=== PATIENT | female | born 1960 | race African-American/Black ===

== ENCOUNTER → 2017-03-18 | Outpatient (CLI) | payer BC ==
[~2017-03-18] MED LIST: 00186-0370-20 IH; ATIVAN 0.50.5 MG/TAB PO; CALCIUM 500 + D1 TA1 PO; CALCIUM500 MG PO; CATAFLAM50 MG PO; CLARITIN 1010 MG/TAB PO; FLONASEALLERGY NS; IRON65 M1 PO; KLOR-CON20 MEQ PO; MASON NATURAL2000 IU PO; MEDROL 4MG DOSPA4 MG PO; NEURONTIN100 MG/CAP PO; NO HOME MEDICATIONS; NORCO 325 MG-51 TAB PO; ONE DAILY1 TA1 PO; PREDNISONE20 MG PO; PRILOSEC 20MG20 MG PO; PROVENTIL0.09 MG/A1 IH; REQUIP0.25 MG PO; RT ADVAIR 228 DISKUS IH; RT ADVAIR 528 DISKUS IH; VALIUM 2MG T2 MG/TAB PO; VENTOLIN0.09 MG IH; VOLTAREN 50MG T50 MG PO; ZITHROMAX Z PA250 MG PO; ZYRTEC 10MG10 MG PO
== END ==
LOC: MC.RAD 07:40
DX: Z12.31 Encounter for screening mammogram for malignant neoplasm of breast (principal)

== ENCOUNTER 2017-09-29 09:46 | Emergency (ER) | payer BC ==
[~2017-09-29] VITALS: Ht 160 cm; Wt 103.7 kg
[2017-09-29] MEDS ORDERED: SINGULAIR 110 MG/TAB PO (10:05)
[2017-09-29] MEDS ORDERED: NEURONTIN300 MG/CAP PO (10:05)
[2017-09-29] MEDS ORDERED: MOBIC15 MG PO (10:05)
[2017-09-29] MEDS ORDERED: SPIRIVA RE2.5 MCG/Ac IH (10:05)
[2017-09-29 10:12] VITALS: TEMP 98
[2017-09-29 10:45] LABS: BASO % 0.3 % (0.0-2.0); EOS # 0.1 (0.0-0.7); EOS % 1.8 % (0-4.0); GRAN # 3.8 (1.4-6.5); HEMATOCRIT 37.8 % (37.0-47.0); HEMOGLOBIN 12.3 g/dl (12.5-16.0); LYMPH # 2.1 (1.2-3.4); LYMPH % 31.7 % (20.0-51.0); MEAN CELL VOLUME 93 fl (80.0-100.0); MEAN CORPUSCULAR HEMOGLOBIN 30 pg (27.0-31.0); MEAN CORPUSCULAR HGB CONC 33 g/dl (33.0-37.0); MEAN PLATELET VOLUME 10.3 fl (7.4-10.4); MONO # 0.5 (0.1-0.6); PLATELET COUNT 232 K/mm3 (130-400); RED BLOOD COUNT 4.07 M/mm3 (4.10-5.30)
[2017-09-29 10:57] VITALS: PULSE 82
[2017-09-29 11:00] LABS: ALANINE AMINOTRANSFERASE 35 U/L (9-52); ALBUMIN 3.9 gm/dL (3.5-5.0); ALKALINE PHOSPHATASE 71 U/L (50-136); ANION GAP 11 mmol/L (7-16); AST,SGOT 25 U/L (15-37); BILIRUBIN,TOTAL 0.4 mg/dL (0.0-1.0); BLOOD UREA NITROGEN 10 mg/dL (7-17); C-REACTIVE PROTEIN 0.6 mg/dL (0.0-0.9); CALCIUM 8.7 mg/dL (8.4-10.2); CARBON DIOXIDE 27 mmol/L (22-30); CHLORIDE 105 mmol/L (98-107); CREATININE, serum 0.74 mg/dL (0.52-1.25); GLUCOSE 89 mg/dL (74-106); POTASSIUM 3.4 mmol/L (3.4-5.0); SODIUM 144 mmol/L (137-145); TOTAL PROTEIN 7.6 gm/dL (6.4-8.2)
[2017-09-29 11:11] LABS: TROPONIN-I < 0.012 ng/mL (0.000-0.034)
[2017-09-29 11:46] LABS: COLLECTION METHOD CLEAN CATCH
[2017-09-29 11:58] LABS: MUCOUS Present /lpf; PH 7 (5-8); SQUAMOUS EPITHELIAL None Seen /hpf; URINE APPEARANCE Clear; URINE BACTERIA None Seen /hpf; URINE BILIRUBIN Negative (NEGATIVE); URINE BLOOD Negative (NEGATIVE); URINE COLOR Yellow; URINE GLUCOSE Negative (NEGATIVE); URINE KETONE Negative (NEGATIVE); URINE LEUKOCYTE ESTERASE Negative (NEGATIVE); URINE NITRATE Negative (NEGATIVE); URINE PROTEIN(semi-quant) Negative (NEGATIVE); URINE RBC None Seen /hpf; URINE UROBILINOGEN Negative (NEGATIVE)
[2017-09-29 12:20] VITALS: BP 136/87
== END 2017-09-29 12:25 | disposition home or self-care (01) ==
LOC: COL.ER 09:46
PROVIDERS: Emergency Medicine
DX: R53.81 Other malaise (principal); R53.83 Other fatigue; I10 Essential (primary) hypertension; J44.9 Chronic obstructive pulmonary disease, unspecified; F17.210 Nicotine dependence, cigarettes, uncomplicated; Z79.51 Long term (current) use of inhaled steroids
CPT/HCPCS: J7030

== ENCOUNTER 2018-01-12 14:38 | Emergency (ER) | payer BC ==
[~2018-01-12] VITALS: Ht 157.5 cm; Wt 90.9 kg
[~2018-01-12 14:38] MED LIST changes: +MOBIC15 MG PO; +NEURONTIN300 MG/CAP PO; +SINGULAIR 110 MG/TAB PO; +SPIRIVA RE2.5 MCG/Ac IH
[2018-01-12 14:43] VITALS: TEMP 98.2
[2018-01-12 15:22] LABS: BASO % 0.5 % (0.0-2.0); EOS # 0.1 (0.0-0.7); EOS % 1.5 % (0-4.0); GRAN # 4.7 (1.4-6.5); GRAN % 62.7 % (42.2-75.2); HEMATOCRIT 38.7 % (37.0-47.0); HEMOGLOBIN 12.6 g/dl (12.5-16.0); MEAN CELL VOLUME 93 fl (80.0-100.0); MEAN CORPUSCULAR HEMOGLOBIN 30 pg (27.0-31.0); MEAN CORPUSCULAR HGB CONC 33 g/dl (33.0-37.0); MEAN PLATELET VOLUME 10.2 fl (7.4-10.4); MONO # 0.7 (0.1-0.6); MONO % 9.2 % (1.7-9.3); PLATELET COUNT 287 K/mm3 (130-400); RED BLOOD COUNT 4.15 M/mm3 (4.10-5.30); REDCELL DISTRIBUTION WIDTH-CV 13.1 % (11.5-14.5)
[2018-01-12 15:25] LABS: ALANINE AMINOTRANSFERASE 30 U/L (9-52); ALBUMIN 4.2 gm/dL (3.5-5.0); ALKALINE PHOSPHATASE 69 U/L (50-136); ANION GAP 12 mmol/L (7-16); AST,SGOT 28 U/L (15-37); BILIRUBIN,TOTAL 0.3 mg/dL (0.0-1.0); BLOOD UREA NITROGEN 11 mg/dL (7-17); C-REACTIVE PROTEIN 0.9 mg/dL (0.0-0.9); CALCIUM 8.7 mg/dL (8.4-10.2); CARBON DIOXIDE 27 mmol/L (22-30); CHLORIDE 100 mmol/L (98-107); CREATININE, serum 0.66 mg/dL (0.52-1.25); GLUCOSE 86 mg/dL (74-106); LIPASE 419 U/L (23-300); POTASSIUM 3.6 mmol/L (3.4-5.0); SODIUM 139 mmol/L (137-145); TOTAL PROTEIN 7.5 gm/dL (6.4-8.2)
[2018-01-12 15:39] LABS: TROPONIN-I < 0.012 ng/mL (0.000-0.034)
[2018-01-12] MEDS ORDERED: PREDNISONE20 MG PO (16:52)
[2018-01-12 17:36] VITALS: BP 134/91; PULSE 71
== END 2018-01-12 17:36 | disposition home or self-care (01) ==
LOC: COL.ER 14:38
PROVIDERS: Emergency Medicine
DX: J45.901 Unspecified asthma with (acute) exacerbation (principal); K21.9 Gastro-esophageal reflux disease without esophagitis; Z79.51 Long term (current) use of inhaled steroids
CPT/HCPCS: J7512

== ENCOUNTER 2018-01-14 15:45 | Emergency (ER) | payer BC ==
[~2018-01-14] VITALS: Ht 157.5 cm; Wt 100.0 kg
[2018-01-14 15:52] VITALS: BP 146/93; TEMP 98.2
[2018-01-14 16:48] LABS: BASO % 0.1 % (0.0-2.0); GRAN # 14.6 (1.4-6.5); GRAN % 90.1 % (42.2-75.2); HEMATOCRIT 38.5 % (37.0-47.0); HEMOGLOBIN 12.6 g/dl (12.5-16.0); LYMPH # 1.1 (1.2-3.4); LYMPH % 6.7 % (20.0-51.0); MEAN CELL VOLUME 93 fl (80.0-100.0); MEAN CORPUSCULAR HEMOGLOBIN 31 pg (27.0-31.0); MEAN CORPUSCULAR HGB CONC 33 g/dl (33.0-37.0); MEAN PLATELET VOLUME 10.1 fl (7.4-10.4); MONO # 0.4 (0.1-0.6); MONO % 2.2 % (1.7-9.3); PLATELET COUNT 292 K/mm3 (130-400); RED BLOOD COUNT 4.12 M/mm3 (4.10-5.30); REDCELL DISTRIBUTION WIDTH-CV 13.2 % (11.5-14.5)
[2018-01-14 17:06] LABS: ALANINE AMINOTRANSFERASE 31 U/L (9-52); ALBUMIN 4.3 gm/dL (3.5-5.0); ALKALINE PHOSPHATASE 79 U/L (50-136); ANION GAP 10 mmol/L (7-16); AST,SGOT 24 U/L (15-37); BILIRUBIN,TOTAL 0.2 mg/dL (0.0-1.0); BLOOD UREA NITROGEN 13 mg/dL (7-17); CALCIUM 9.1 mg/dL (8.4-10.2); CARBON DIOXIDE 27 mmol/L (22-30); CHLORIDE 103 mmol/L (98-107); CREATININE, serum 0.58 mg/dL (0.52-1.25); GLUCOSE 132 mg/dL (74-106); SODIUM 139 mmol/L (137-145); TOTAL PROTEIN 7.7 gm/dL (6.4-8.2)
[2018-01-14 17:20] LABS: TROPONIN-I < 0.012 ng/mL (0.000-0.034)
[2018-01-14] MEDS ORDERED: ZITHROMAX Z PA250 MG PO (17:24)
[2018-01-14 17:53] VITALS: PULSE 100
== END 2018-01-14 18:02 | disposition home or self-care (01) ==
LOC: COL.ER 15:45
PROVIDERS: Emergency Medicine
DX: J45.901 Unspecified asthma with (acute) exacerbation (principal); J06.9 Acute upper respiratory infection, unspecified; R07.89 Other chest pain; E66.9 Obesity, unspecified; Z87.891 Personal history of nicotine dependence; Z79.51 Long term (current) use of inhaled steroids

== ENCOUNTER 2018-05-14 09:24 | Day surgery (SDC) | payer BC ==
[~2018-05-14] VITALS: Ht 158.8 cm; Wt 106.4 kg
[2018-05-14] VITALS (8 sets, daily range): BP systolic 108–137; BP diastolic 74–106; PULSE 20–95; TEMP 98.3–98.4
[2018-05-14] MEDS ORDERED: CELEXA 20MG20 MG/TAB PO (09:59)
[2018-05-14] MEDS ORDERED: VITAMIN D31000 I1 PO (09:59)
[2018-05-14] MEDS ORDERED: MAG-OX 400400 MG/TAB PO (10:00)
[2018-05-14] MEDS ORDERED: BENADRYL25 M2 PO (10:00)
== END 2018-05-14 13:20 | disposition home or self-care (01) ==
LOC: SDCO 09:24
DX: Z12.11 Encounter for screening for malignant neoplasm of colon (principal); D12.0 Benign neoplasm of cecum; D12.2 Benign neoplasm of ascending colon; K57.30 Diverticulosis of large intestine without perforation or abscess without bleeding; J45.909 Unspecified asthma, uncomplicated; Z86.010 Personal history of colon polyps
CPT/HCPCS: J2250; J3010; J7030

== ENCOUNTER 2019-03-24 17:05 | Emergency (ER) | payer SELFPAY ==
[~2019-03-24] VITALS: Ht 157.5 cm; Wt 101.8 kg
[~2019-03-24 17:05] MED LIST changes: +BENADRYL25 M2 PO; +CELEXA 20MG20 MG/TAB PO; +FLONASE NASAL S16 GM NS; +MAG-OX 400400 MG/TAB PO; +MUCINEX DM 30 M1 TE1; +TESSALON PERLE200 MG PO; +VITAMIN D31000 I1 PO; +ZITHROMAX500 M2 PO
[2019-03-24 17:10] VITALS: BP 140/89; TEMP 97.9
[2019-03-24 18:42] LABS: BASO % 0.4 % (0.0-2.0); EOS # 0.1 (0.0-0.7); EOS % 1.5 % (0-4.0); GRAN # 4.9 (1.4-6.5); GRAN % 67.4 % (42.2-75.2); HEMOGLOBIN 11.6 g/dl (12.5-16.0); LYMPH # 1.7 (1.2-3.4); LYMPH % 23.2 % (20.0-51.0); MEAN CELL VOLUME 96 fl (80.0-100.0); MEAN CORPUSCULAR HEMOGLOBIN 30 pg (27.0-31.0); MEAN CORPUSCULAR HGB CONC 32 g/dl (33.0-37.0); MEAN PLATELET VOLUME 10.3 fl (7.4-10.4); MONO # 0.5 (0.1-0.6); MONO % 7.2 % (1.7-9.3); PLATELET COUNT 249 K/mm3 (130-400); RED BLOOD COUNT 3.81 M/mm3 (4.10-5.30); REDCELL DISTRIBUTION WIDTH-CV 13.2 % (11.5-14.5)
[2019-03-24 18:57] LABS: HEMATOCRIT 36.6 % (37.0-47.0)
[2019-03-24 19:03] LABS: ALANINE AMINOTRANSFERASE 26 U/L (9-52); ALBUMIN 4.2 gm/dL (3.5-5.0); ALKALINE PHOSPHATASE 70 U/L (50-136); ANION GAP 10 mmol/L (7-16); AST,SGOT 32 U/L (15-37); BILIRUBIN,TOTAL 0.2 mg/dL (0.0-1.0); BLOOD UREA NITROGEN 9 mg/dL (7-17); CALCIUM 8.8 mg/dL (8.4-10.2); CARBON DIOXIDE 28 mmol/L (22-30); CHLORIDE 105 mmol/L (98-107); CREATININE, serum 0.75 (0.52-1.25); GLUCOSE 114 mg/dL (74-106); POTASSIUM 3.9 mmol/L (3.4-5.0); SODIUM 142 mmol/L (137-145); TOTAL PROTEIN 7.4 gm/dL (6.4-8.2)
[2019-03-24] MEDS ORDERED: PREDNISONE20 MG PO (19:04)
[2019-03-24 19:21] LABS: TROPONIN-I < 0.012 ng/mL (0.000-0.035)
[2019-03-24 20:17] VITALS: PULSE 92
== END 2019-03-24 19:45 | disposition home or self-care (01) ==
LOC: COL.ER 17:05
PROVIDERS: Emergency Medicine
DX: J45.901 Unspecified asthma with (acute) exacerbation (principal); Z79.51 Long term (current) use of inhaled steroids
CPT/HCPCS: J7512

== ENCOUNTER 2019-07-21 16:45 | Emergency (ER) | payer BC ==
[~2019-07-21] VITALS: Ht 160 cm; Wt 101.8 kg
[2019-07-21 16:53] VITALS: TEMP 97
[2019-07-21] MEDS ORDERED: ULTRAM 50MG TAB50 MG PO (18:51)
[2019-07-21 19:35] VITALS: BP 145/92; PULSE 86
== END 2019-07-21 17:35 | disposition home or self-care (01) ==
LOC: COL.ER 16:45
DX: S80.02XA Contusion of left knee, initial encounter (principal); M25.552 Pain in left hip; F32.9 Major depressive disorder, single episode, unspecified; J45.909 Unspecified asthma, uncomplicated; Z79.51 Long term (current) use of inhaled steroids; W01.0XXA Fall on same level from slipping, tripping and stumbling without subsequent striking against object, initial encounter; Y92.481 Parking lot as the place of occurrence of the external cause
CPT/HCPCS: J1885

== ENCOUNTER 2020-02-17 12:53 | Emergency (ER) | payer BC ==
[~2020-02-17] VITALS: Ht 160 cm; Wt 109.1 kg
[~2020-02-17 12:53] MED LIST changes: +ULTRAM 50MG TAB50 MG PO
[2020-02-17 13:08] VITALS: BP 120/83; TEMP 98.3
[2020-02-17 17:33] VITALS: PULSE 66
== END 2020-02-17 17:36 | disposition home or self-care (01) ==
LOC: COL.ER 12:53
DX: S83.92XA Sprain of unspecified site of left knee, initial encounter (principal); J45.909 Unspecified asthma, uncomplicated; F32.9 Major depressive disorder, single episode, unspecified; W01.0XXA Fall on same level from slipping, tripping and stumbling without subsequent striking against object, initial encounter; Y92.009 Unspecified place in unspecified non-institutional (private) residence as the place of occurrence of the external cause

== ENCOUNTER 2021-01-07 15:27 | Emergency (ER) | payer BC ==
[~2021-01-07] VITALS: Ht 154.9 cm; Wt 122.3 kg
[2021-01-07 15:36] VITALS: TEMP 98.5
[2021-01-07] MEDS ORDERED: BACTRIM DS 8001 TAB PO (15:52)
[2021-01-07 16:08] VITALS: BP 127/93; PULSE 82
== END 2021-01-07 16:14 | disposition home or self-care (01) ==
LOC: COL.ER 15:27
DX: L03.115 Cellulitis of right lower limb (principal); J44.9 Chronic obstructive pulmonary disease, unspecified; Z79.899 Other long term (current) drug therapy

== ENCOUNTER 2021-01-18 20:15 | Emergency (ER) | payer BC ==
[~2021-01-18] VITALS: Ht 157.5 cm; Wt 124.1 kg
[~2021-01-18 20:15] MED LIST changes: +BACTRIM DS 8001 TAB PO
[2021-01-18] MEDS ORDERED: FLEXERIL 1010 MG/TAB PO (22:17)
[2021-01-18 22:44] VITALS: BP 126/64; PULSE 76; TEMP 98.2
== END 2021-01-18 22:48 | disposition home or self-care (01) ==
LOC: COL.ER 20:15
DX: S39.012A Strain of muscle, fascia and tendon of lower back, initial encounter (principal); X58.XXXA Exposure to other specified factors, initial encounter
CPT/HCPCS: J1885

== ENCOUNTER 2021-03-26 15:00 | Outpatient (RCR) | payer BC ==
[~2021-03-26 15:00] MED LIST changes: +FLEXERIL 1010 MG/TAB PO
== END 2021-05-05 | disposition home or self-care (01) ==
LOC: WSPT
DX: R60.0 Localized edema (principal)

== ENCOUNTER 2021-07-19 14:52 | Emergency (ER) | payer BC ==
[~2021-07-19] VITALS: Ht 157.5 cm; Wt 127.7 kg
[2021-07-19] MEDS ORDERED: NORCO 325 MG-51 TAB PO (16:39)
[2021-07-19 17:26] VITALS: BP 132/78; PULSE 81; TEMP 98.4
== END 2021-07-19 17:15 | disposition home or self-care (01) ==
LOC: COL.ER 14:52
DX: S79.911A Unspecified injury of right hip, initial encounter (principal); M25.561 Pain in right knee; L03.115 Cellulitis of right lower limb; M17.11 Unilateral primary osteoarthritis, right knee; I10 Essential (primary) hypertension; J45.909 Unspecified asthma, uncomplicated; Z79.899 Other long term (current) drug therapy; W06.XXXA Fall from bed, initial encounter

== ENCOUNTER 2022-01-03 14:32 | Emergency (ER) | payer SELFPAY ==
[~2022-01-03] VITALS: Ht 157.5 cm; Wt 118.2 kg
[2022-01-03 14:35] VITALS: TEMP 97.4
[2022-01-03 14:56] LABS: BASO % 0.6 % (0.0-2.0); EOS # 0.2 K/mm3 (0.0-0.7); EOS % 2.4 % (0.0-4.0); GRAN # 4.1 K/mm3 (1.4-6.5); GRAN % 63.6 % (42.2-75.2); HEMATOCRIT 38.8 % (37.0-47.0); HEMOGLOBIN 12.7 g/dl (12.5-16.0); LYMPH # 1.6 K/mm3 (1.2-3.4); LYMPH % 24.6 % (20.0-51.0); MEAN CELL VOLUME 92 fl (80.0-100.0); MEAN CORPUSCULAR HEMOGLOBIN 30 pg (27-31); MEAN CORPUSCULAR HGB CONC 33 g/dl (33.0-37.0); MEAN PLATELET VOLUME 10.1 fl (7.4-10.4); MONO # 0.6 K/mm3 (0.1-0.6); MONO % 8.6 % (1.7-9.3); PLATELET COUNT 265 K/mm3 (130-400); REDCELL DISTRIBUTION WIDTH-CV 13.4 % (11.5-14.5)
[2022-01-03 15:12] LABS: ANION GAP 14 mmol/L (7-16); BLOOD UREA NITROGEN 9 mg/dL (10-20); CALCIUM 9.2 mg/dL (8.4-10.2); CARBON DIOXIDE 25 mmol/L (23-31); CHLORIDE 103 mmol/L (98-107); CREATININE, serum 0.79 mg/dL (0.57-1.11); GLUCOSE 92 mg/dL (70-99); POTASSIUM 3.9 mmol/L (3.5-4.5); SODIUM 142 mmol/L (136-145)
[2022-01-03 15:28] LABS: TROPONIN-I < 0.010 ng/mL (0.00-0.033)
[2022-01-03] MEDS ORDERED: PREDNISONE20 MG PO (15:45)
[2022-01-03 16:15] VITALS: BP 139/83; PULSE 90
== END 2022-01-03 16:20 | disposition home or self-care (01) ==
LOC: COL.ER 14:32
PROVIDERS: Emergency Medicine
DX: J45.901 Unspecified asthma with (acute) exacerbation (principal); Z20.822 Contact with and (suspected) exposure to COVID-19
CPT/HCPCS: J2930; J7120

== ENCOUNTER 2022-02-22 17:02 | Emergency (ER) | payer SELFPAY ==
[~2022-02-22] VITALS: Ht 157.5 cm; Wt 118.2 kg
[2022-02-22 17:05] VITALS: TEMP 98.1
[2022-02-22 17:51] LABS: BASO % 0.4 % (0.0-2.0); EOS # 0.1 K/mm3 (0.0-0.7); EOS % 1.4 % (0.0-4.0); GRAN # 5.5 K/mm3 (1.4-6.5); GRAN % 71.3 % (42.2-75.2); HEMATOCRIT 37.4 % (37.0-47.0); HEMOGLOBIN 11.9 g/dl (12.5-16.0); LYMPH # 1.6 K/mm3 (1.2-3.4); LYMPH % 21.5 % (20.0-51.0); MEAN CELL VOLUME 95 fl (80.0-100.0); MEAN CORPUSCULAR HEMOGLOBIN 30 pg (27-31); MEAN CORPUSCULAR HGB CONC 32 g/dl (33.0-37.0); MEAN PLATELET VOLUME 9.7 fl (7.4-10.4); MONO # 0.4 K/mm3 (0.1-0.6); PLATELET COUNT 235 K/mm3 (130-400); RED BLOOD COUNT 3.95 M/mm3 (4.10-5.30); REDCELL DISTRIBUTION WIDTH-CV 13.5 % (11.5-14.5)
[2022-02-22 18:15] LABS: ALBUMIN 3.8 gm/dL (3.4-4.8); BILIRUBIN,TOTAL 0.2 mg/dL (0.2-1.2); CALCIUM 9.4 mg/dL (8.4-10.2); CREATININE, serum 0.82 mg/dL (0.57-1.11); POTASSIUM 3.7 mmol/L (3.5-4.5); TOTAL PROTEIN 7.3 gm/dL (6.2-8.1)
[2022-02-22 18:21] LABS: TROPONIN-I 0.014 ng/mL (0.00-0.033)
[2022-02-22] MEDS ORDERED: IPRATROPIUM BROM3 M1 IH (19:52)
[2022-02-22] MEDS ORDERED: PREDNISONE50 MG PO (19:53)
[2022-02-22 20:41] VITALS: BP 146/89; PULSE 94
== END 2022-02-22 20:56 | disposition home or self-care (01) ==
LOC: COL.ER 17:02
PROVIDERS: Physician Assistant
DX: J45.901 Unspecified asthma with (acute) exacerbation (principal); E66.9 Obesity, unspecified; Z68.42 Body mass index [BMI] 45.0-49.9, adult; Z20.822 Contact with and (suspected) exposure to COVID-19
CPT/HCPCS: J2930

== ENCOUNTER 2022-02-24 17:02 | Emergency (ER) | payer SELFPAY ==
[~2022-02-24] VITALS: Ht 157.5 cm; Wt 118.2 kg
[~2022-02-24 17:02] MED LIST changes: +IPRATROPIUM BROM3 M1 IH; +PREDNISONE50 MG PO
[2022-02-24 17:51] VITALS: BP 159/94; TEMP 98.2
[2022-02-24 18:57] VITALS: PULSE 97
== END 2022-02-24 19:01 | disposition home or self-care (01) ==
LOC: COL.ER 17:02
DX: J45.901 Unspecified asthma with (acute) exacerbation (principal); E66.9 Obesity, unspecified; Z68.29 Body mass index [BMI] 29.0-29.9, adult; Z79.52 Long term (current) use of systemic steroids
CPT/HCPCS: J1100

== ENCOUNTER 2022-06-16 15:22 | Emergency (ER) | payer MEDICAID ==
[~2022-06-16] VITALS: Ht 157.5 cm; Wt 130.0 kg
[2022-06-16 15:26] VITALS: TEMP 98.4
[2022-06-16 16:23] LABS: BASO % 0.3 % (0.0-2.0); EOS # 0.2 K/mm3 (0.0-0.7); EOS % 2.4 % (0.0-4.0); GRAN # 4.3 K/mm3 (1.4-6.5); GRAN % 67.3 % (42.2-75.2); HEMATOCRIT 37.1 % (37.0-47.0); HEMOGLOBIN 11.7 g/dl (12.5-16.0); LYMPH # 1.4 K/mm3 (1.2-3.4); LYMPH % 22.4 % (20.0-51.0); MEAN CELL VOLUME 95 fl (80.0-100.0); MEAN CORPUSCULAR HEMOGLOBIN 30 pg (27-31); MEAN CORPUSCULAR HGB CONC 32 g/dl (33.0-37.0); MEAN PLATELET VOLUME 9.9 fl (7.4-10.4); MONO # 0.5 K/mm3 (0.1-0.6); MONO % 7.4 % (1.7-9.3); PLATELET COUNT 272 K/mm3 (130-400); RED BLOOD COUNT 3.92 M/mm3 (4.10-5.30); REDCELL DISTRIBUTION WIDTH-CV 13.2 % (11.5-14.5)
[2022-06-16 16:44] LABS: ALANINE AMINOTRANSFERASE 25 U/L (0-55); ALBUMIN 3.5 gm/dL (3.4-4.8); ALKALINE PHOSPHATASE 60 U/L (40-150); ANION GAP 9 mmol/L (7-16); AST,SGOT 18 U/L (5-34); BILIRUBIN,TOTAL 0.4 mg/dL (0.2-1.2); BLOOD UREA NITROGEN 11 mg/dL (10-20); CALCIUM 8.9 mg/dL (8.4-10.2); CARBON DIOXIDE 27 mmol/L (23-31); CHLORIDE 105 mmol/L (98-107); GLUCOSE 83 mg/dL (70-99); POTASSIUM 3.7 mmol/L (3.5-4.5); SODIUM 141 mmol/L (136-145); TOTAL PROTEIN 7.2 gm/dL (6.2-8.1)
[2022-06-16 16:52] LABS: TROPONIN-I < 0.010 ng/mL (0.00-0.033)
[2022-06-16] MEDS ORDERED: PREDNISONE20 MG PO (18:06)
[2022-06-16 18:15] VITALS: BP 140/87; PULSE 94
[2022-07-07] MEDS ORDERED: PREDNISONE50 MG PO (13:24)
[2022-07-29] MEDS ORDERED: NORCO 325 MG-51 TAB PO (20:55)
[2022-08-23] MEDS ORDERED: MEDROL 4MG DOSPA4 MG PO (16:29)
[2022-08-23] MEDS ORDERED: FLEXERIL 1010 MG/TAB PO (16:29)
[2022-09-17] MEDS ORDERED: VOLTAREN GEL 1%1 TU TP (21:05)
[2022-09-17] MEDS ORDERED: BENADRYL25 M2 PO (21:06)
[2022-09-17] MEDS ORDERED: NEURONTIN300 MG/CAP PO (21:07)
[2022-09-17] MEDS ORDERED: IMODIUM 2MG CAPS2 MG PO (21:07)
[2022-09-17] MEDS ORDERED: SINGULAIR 110 MG/TAB PO (21:08)
[2022-09-17] MEDS ORDERED: MAG-OX 400400 MG/TAB PO (21:08)
[2022-09-17] MEDS ORDERED: K-DUR20 MEQ PO (21:10)
[2022-09-17] MEDS ORDERED: REQUIP0.25 MG PO (21:10)
[2022-09-17] MEDS ORDERED: 00186-0370-20 IH (21:11)
[2022-09-17] MEDS ORDERED: VITAMIN D31000 I1 PO (21:11)
[2022-09-19] MEDS ORDERED: MULTI VITAMINS1 TAB PO (14:34)
[2022-09-19] MEDS ORDERED: FLEXERIL 1010 MG/TAB PO (14:35)
[2022-09-20] MEDS ORDERED: LASIX 40MG TABL40 MG PO (10:09)
[2022-09-20] MEDS ORDERED: COUMADIN 5MG5 MG/TAB PO (10:10)
[2022-09-20] MEDS ORDERED: LOVENOX150 MG/ML SQ (10:11)
[2022-09-20] MEDS ORDERED: MONODOX100 PO (10:12)
[2022-09-20] MEDS ORDERED: NORCO 325 MG-51 TAB PO (10:12)
[2023-01-09] MEDS ORDERED: NORCO 325 MG-51 TAB PO ×2 (16:16→16:19)
[2023-01-09] MEDS ORDERED: MEDROL 4MG DOSPA4 MG PO (19:45)
[2023-03-23] MEDS ORDERED: DICLOFENAC SOD2.5 ML TOP (17:23)
[2023-03-23] MEDS ORDERED: FERROUSAL325 MG PO (17:24)
[2023-03-23] MEDS ORDERED: FLONASEALLERGY NS (17:24)
[2023-03-23] MEDS ORDERED: DITROPAN 5MG TAB5 MG PO (17:26)
[2023-03-23] MEDS ORDERED: REQUIP0.25 MG PO (17:26)
[2023-03-23] MEDS ORDERED: RT SPIRIVA18 MCG IH (17:27)
[2023-03-23] MEDS ORDERED: COUMADIN 5MG5 MG/TAB PO (17:30)
[2023-03-23] MEDS ORDERED: PREDNISONE20 MG PO (21:09)
[2023-03-23] MEDS ORDERED: DOXYCYCLINE 10100 MG PO (21:09)
== END 2022-06-16 18:21 | disposition home or self-care (01) ==
LOC: COL.ER 15:22
PROVIDERS: Emergency Medicine
DX: J45.901 Unspecified asthma with (acute) exacerbation (principal); M25.552 Pain in left hip; Z28.310 Unvaccinated for COVID-19
CPT/HCPCS: J7512

== ENCOUNTER 2023-06-19 13:04 | Day surgery (SDC) | payer MEDICAID ==
[~2023-06-19] VITALS: Ht 160 cm; Wt 138.3 kg
[~2023-06-19 13:04] MED LIST changes: +COUMADIN 5MG5 MG/TAB PO; +DICLOFENAC SOD2.5 ML TOP; +DITROPAN 5MG TAB5 MG PO; +DOXYCYCLINE 10100 MG PO; +FERROUSAL325 MG PO; +IMODIUM 2MG CAPS2 MG PO; +K-DUR20 MEQ PO; +LASIX 40MG TABL40 MG PO; +LOVENOX150 MG/ML SQ; +LR 1,000 ML IV SCH; +MONODOX100 PO; +MULTI VITAMINS1 TAB PO; +Ondansetron 4 MG/2 ML VIAL IV PRN; +RT SPIRIVA18 MCG IH; +VOLTAREN GEL 1%1 TU TP
[2023-06-19] MEDS ORDERED: Glycopyrrolate 0.2 MG/ML 1 ML VIAL ONE (13:39)
[2023-06-19] MEDS ORDERED: Lidocaine PF 2% (20 MG/ML) 5 ML VIAL ONE (13:39)
[2023-06-19 14:28] VITALS: BP 130/87; PULSE 86; TEMP 98
--- NOTE | 2023-06-19 14:30 | NUR ---
1316 PT TO BAY 4 VIA WHEEL CHAIR. ABLE TO TRANSFER FROM CHAIR TO STRETCHER WITH ASSISTANCE GETTING LEGS UP ONTO THE STRETCHER. PT CHANGED INTO GOWN INDEPEMDENTLY. PT IS ALERT AND ORIENTED. CONSENTS REVIEWED WITH AND SIGNED BY PT. IV ESTABLISHED. LR INFUSING VIA GRAVITY AT KVO. CALL LIGHT IN REACH.
--- NOTE | 2023-06-19 14:35 | NUR ---
1146 Pt ambulatory to bay 2 with a steady gait, breathing even and unlabored. Pt is alert and oriented, accompanied by her . Consent reviewed with and signed by pt. IV established. LR infusing via gravity at KVO. Call light in reach. Warm blankets provided.
[2023-06-19 15:15] VITALS: BP 129/82; PULSE 92; TEMP 98
[2023-06-19 15:30] VITALS: BP 129/86; PULSE 86
[2023-06-19 15:45] VITALS: BP 134/82; PULSE 82
--- NOTE | 2023-06-19 16:15 | NUR ---
1515 RETURNS TO ROOM 4 PER CART. AWAKE, ALERT. RESP UNLABORED. DENIES NAUSEA, ABD/CHEST PAIN OR DYSPHAGIA. VITAL SIGNS OBTAINED. PATIENT REMAINS ON CART. CALL LIGHT AT SIDE 1520 DR. MCCRACKEN HERE TO VISIT WITH PATIENT 1525 [place] PO JUICE AND PUDDING, SWALLOWS WITHOUT DIFFICULTY DISCHARGE INSTRUCTIONS REVIEWED. PATIENT VERBALIZES UNDERSTANDING. COPY PROVIDED IN DISCHARGE FOLDER 1540 PATIENT ASSISTED TO EDGE OF BED, THEN AMBULATES TO BATHROOM WITH STANDBY ASSIST. VOIDS. WILL DRESS SELF. CALL ENCOURAGED TO USE CALL LIGHT IF ASSISTANCE NEEDED 1555 PATIENT DRESSED. ASSISTED TO WHEELCHAIR 1605 AWAITING ARRIVAL OF SON
== END 2023-06-19 16:18 | disposition home or self-care (01) ==
LOC: SDCO 13:04
DX: Z12.11 Encounter for screening for malignant neoplasm of colon (principal); D12.2 Benign neoplasm of ascending colon; D12.5 Benign neoplasm of sigmoid colon; K22.2 Esophageal obstruction; K21.9 Gastro-esophageal reflux disease without esophagitis; K57.30 Diverticulosis of large intestine without perforation or abscess without bleeding; E66.9 Obesity, unspecified; G47.33 Obstructive sleep apnea (adult) (pediatric); K64.1 Second degree hemorrhoids; Z87.891 Personal history of nicotine dependence
CPT/HCPCS: C1726; J2704; J7120

== ENCOUNTER → 2023-07-21 | Outpatient (CLI) | payer MEDICAID ==
[~2023-07-21] MED LIST changes: +Albuterol 0.083% Neb Soln 2.5 MG/3 ML UD IH ONE; -LR 1,000 ML IV SCH; -Ondansetron 4 MG/2 ML VIAL IV PRN
== END ==
LOC: COL.CARD 14:10
DX: J45.40 Moderate persistent asthma, uncomplicated (principal)

== ENCOUNTER → 2023-07-22 | Outpatient (CLI) | payer MEDICAID ==
[~2023-07-22] MED LIST changes: -Albuterol 0.083% Neb Soln 2.5 MG/3 ML UD IH ONE
== END ==
LOC: MHCPAIN 08:28
DX: M47.817 Spondylosis without myelopathy or radiculopathy, lumbosacral region (principal); G89.29 Other chronic pain
CPT/HCPCS: G0463

== ENCOUNTER → 2023-08-06 | Outpatient (CLI) | payer MEDICAID | LOC: MHCPAIN 08:45 | DX: M47.817 Spondylosis without myelopathy or radiculopathy, lumbosacral region (principal); M54.50 Low back pain, unspecified | CPT/HCPCS: J0665 ==

== ENCOUNTER → 2023-08-27 | Outpatient (CLI) | payer MEDICAID ==
[~2023-08-27] MED LIST changes: +Iohexol 300 - 10 ML VIAL ONE
== END ==
LOC: MHCPAIN 12:56
DX: M16.12 Unilateral primary osteoarthritis, left hip (principal); M25.552 Pain in left hip
CPT/HCPCS: J0665; J1040; Q9967

== ENCOUNTER → 2023-10-07 | Outpatient (CLI) | payer MEDICAID ==
[~2023-10-07] MED LIST changes: -Iohexol 300 - 10 ML VIAL ONE
== END ==
LOC: MHCPAIN 15:05
DX: M47.896 Other spondylosis, lumbar region (principal); M53.3 Sacrococcygeal disorders, not elsewhere classified
CPT/HCPCS: G0463